=== PATIENT | male | born 1980 | race Two or more races ===

== ENCOUNTER 2021-09-08 06:11 | Inpatient (IN) | payer MEDICAID, OTHER ==
[~2021-09-08] VITALS: Ht 175.3 cm; Wt 154.3 kg
[2021-09-08 07:39] LABS: Hematocrit 44.6 % (41.0-53.0); Hemoglobin 14.9 g/dL (13.5-17.5); Mean Corpuscular Hemoglobin 30.1 pg (28.0-32.0); Mean Corpuscular Hgb Conc. 33.4 g/dL (32.0-36.0); Mean Corpuscular Volume 90.3 fL (80.0-100.0); Red Blood Cells 4.93 10^6/uL (4.5-5.90); White Blood Cell 29.2 10^3/uL (4.4-10.8)
[2021-09-08 07:54] LABS: Albumin 2.5 g/dL (3.4-5.0); BUN/Creatinine Ratio 14.1; Calcium 9.1 mg/dL (8.5-10.1); Potassium 3.4 mmol/L (3.5-5.1)
[2021-09-08 07:57] LABS: Basophils % (manual) 0 (0.0-2.0); Blast Cells 0; Eosinophils % (manual) 0 (0-7); Metamyelocytes % 0; Promyelocytes % 0; Reactive Lymphocytes 0
[2021-09-08 08:04] LABS: Bilirubin, Total 1.8 mg/dL (0.2-1.0); Total Protein 8.1 g/dL (6.4-8.2)
[2021-09-08 08:23] LABS: Urine Bacteria NONE SEEN /hpf (None Seen); Urine Blood 1+ /uL (Negative); Urine Hyaline Cast FEW /lpf (0 - 2); Urine Mucus FEW (None Seen); Urine Specific Gravity 1.022 (1.001-1.035); Urine WBC 93 /hpf (0 - 3); Urine WBC Clumps PRESENT /hpf (None Seen)
[2021-09-08] MEDS ORDERED: ONDANSETRON HCL 4 MG/2 ML VIAL IV ONE (08:30)
[2021-09-08] MEDS ORDERED: PIPERACILLIN-TAZOB 3.375GM 100 ML IV ONE (08:30)
[2021-09-08] MEDS ORDERED: HYDROmorphone HCL 2 MG/ML VL IV ONE (08:30)
[2021-09-08] MEDS ORDERED: SODIUM CHLORIDE 0.9% 1,000 ML IV ONE (08:30)
[2021-09-08 10:01] LABS: INR 1.48 (0.9-1.15); Partial Thromboplastin Time 28.5 sec (23.6-33.0)
[2021-09-08] MEDS ORDERED: NITROGLYCERIN 0.4 MG SL TAB SL PRN (10:30)
[2021-09-08] MEDS ORDERED: MORPHINE SULFATE 4 MG/ML SYR/VIAL IV PRN (10:30)
[2021-09-08] MEDS ORDERED: SODIUM CHLORIDE 0.9% 1,000 ML IV SCH (10:30)
[2021-09-08 10:43] LABS: Band Neutrophils % (manual) 20; Lymphocytes % (manual) 6 (10.0-50.0); Monocytes % (manual) 7 (0-12); Myelocytes % 1
[2021-09-08] MEDS ORDERED: LIDOCAINE 1%-Mpf/Epinephrine 1:200,000 ONE (12:27)
[2021-09-08] MEDS ORDERED: SUCCINYLCHOLINE CHLORIDE 20 MG/ML 10ML VIAL IV ONE ×2 (13:13→13:14)
[2021-09-08] MEDS ORDERED: ROCURONIUM 10MG/ML 10ML VIAL IV ONE (13:21)
[2021-09-08] MEDS ORDERED: fentaNYL CITRATE 5 ML ONE (13:21)
[2021-09-08] MEDS ORDERED: MIDAZOLAM HCL 2MG/2ML 2ml VIAL (1mg/ml) ONE (13:21)
[2021-09-08 14:15] LABS: Protein, Urine 115.4 mg/dL (0.0-11.9)
[2021-09-08] MEDS ORDERED: SUGAMMADEX 200mg/2ml Vial (100MG/ML) IV ONE (14:52)
[2021-09-08] MEDS ORDERED: HYDROmorphone HCL 2 MG/ML VL IV PRN (15:15)
[2021-09-08] MEDS ORDERED: ONDANSETRON HCL 4 MG/2 ML VIAL IV PRN (15:15)
[2021-09-08 16:48] VITALS: BP_SYST 110; BP_SYST 115; BP_DIAS 65; BP_DIAS 67
[2021-09-08 17:18] VITALS: BP 109/63
[2021-09-08 18:28] VITALS: BP 125/71
[2021-09-08] MEDS: ONDANSETRON HCL 4 MG/2 ML VIAL IV PRN (19:53)
[2021-09-08] MEDS: MORPHINE SULFATE INJECTION 2 MG/ML SYRG IV PRN (19:56)
[2021-09-08] MEDS: D5W/SOD CHL 0.45%/KCL 20MEQ 1,000 ML IV SCH ×2 (19:59→23:50)
[2021-09-08 20:00] VITALS: BP 127/74
[2021-09-08] MEDS: HEPARIN SODIUM (PORCINE) 5000 UNITS/ML 1ML VIAL SC SCH (21:06)
[2021-09-08] MEDS ORDERED: IBUP800T27 PO (21:31)
[2021-09-08] MEDS ORDERED: AML5T PO (21:32)
[2021-09-08] MEDS ORDERED: TRAM-297 PO (21:33)
[2021-09-08] MEDS ORDERED: TAM04C PO (21:33)
[2021-09-08] MEDS: metroNIDAZOLE 500MG/100ML 100 ML IV SCH (21:44)
[2021-09-08 22:00] VITALS: BP 127/74
[2021-09-09] MEDS: ONDANSETRON HCL 4 MG/2 ML VIAL IV PRN (03:50)
[2021-09-09] MEDS: MORPHINE SULFATE INJECTION 2 MG/ML SYRG IV PRN ×3 (03:52→20:34)
[2021-09-09] MEDS: D5W/SOD CHL 0.45%/KCL 20MEQ 1,000 ML IV SCH ×2 (04:16→16:58)
[2021-09-09 05:00] VITALS: BP 127/78
[2021-09-09] MEDS: metroNIDAZOLE 500MG/100ML 100 ML IV SCH ×3 (05:31→22:00)
[2021-09-09 05:40] LABS: Basophils # (auto) 0 10 ^3/uL (0-0.2); Eosinophils # (auto) 0 10 ^3/uL (0-0.8); Hemoglobin 12.9 g/dL (13.5-17.5); Lymphocytes # (auto) 0.8 10 ^3/uL (0.4-5.4); Lymphocytes % (auto) 3.7 % (10.0-50.0); Mean Corpuscular Hemoglobin 30.7 pg (28.0-32.0); Mean Corpuscular Volume 90.3 fL (80.0-100.0); Monocytes # (auto) 1.1 10 ^3/uL (0-1.3); Monocytes % (auto) 5.2 % (0.0-12.0); Neutrophils # (auto) 19.8 10 ^3/uL (1.6-8.6); Neutrophils % (auto) 91.1 % (37.0-80.0); Red Blood Cells 4.21 10^6/uL (4.5-5.90); Red Cell Distribution Width 14.3 % (11.8-14.3); White Blood Cell 21.8 10^3/uL (4.4-10.8)
[2021-09-09 06:01] LABS: Calcium 8.2 mg/dL (8.5-10.1); Potassium 3.6 mmol/L (3.5-5.1)
[2021-09-09 06:08] LABS: Albumin 2.1 g/dL (3.4-5.0); BUN/Creatinine Ratio 31.6; Total Protein 7.3 g/dL (6.4-8.2)
[2021-09-09 08:00] VITALS: BP 119/85
[2021-09-09 09:00] VITALS: BP 119/85
[2021-09-09] MEDS: cefTRIAXone 1GM/50ML D5W 50 ML IV SCH (10:38)
[2021-09-09] MEDS: PANTOPRAZOLE 40 MG/10 ML VIAL INJ IV SCH (10:38)
[2021-09-09] MEDS: HEPARIN SODIUM (PORCINE) 5000 UNITS/ML 1ML VIAL SC SCH ×2 (10:50→22:00)
[2021-09-09 13:00] VITALS: BP 129/83
[2021-09-09 17:00] VITALS: BP 130/92
[2021-09-09 22:00] VITALS: BP 136/84
[2021-09-10] MEDS: D5W/SOD CHL 0.45%/KCL 20MEQ 1,000 ML IV SCH (01:06)
[2021-09-10 05:00] VITALS: BP 150/94
[2021-09-10 05:16] LABS: Hematocrit 39.6 % (41.0-53.0); Hemoglobin 13.1 g/dL (13.5-17.5); Mean Corpuscular Hemoglobin 29.9 pg (28.0-32.0); Mean Corpuscular Hgb Conc. 33.2 g/dL (32.0-36.0); Red Blood Cells 4.39 10^6/uL (4.5-5.90); Red Cell Distribution Width 14.4 % (11.8-14.3); White Blood Cell 21.5 10^3/uL (4.4-10.8)
[2021-09-10 05:20] LABS: Basophils % (manual) 0 (0.0-2.0); Blast Cells 0; Eosinophils % (manual) 0 (0-7); Metamyelocytes % 0; Myelocytes % 0; Promyelocytes % 0; Reactive Lymphocytes 0
[2021-09-10] MEDS: metroNIDAZOLE 500MG/100ML 100 ML IV SCH ×3 (05:36→21:08)
[2021-09-10 05:53] LABS: Calcium 8.6 mg/dL (8.5-10.1); Potassium 3.9 mmol/L (3.5-5.1)
[2021-09-10 05:55] LABS: BUN/Creatinine Ratio 38.2
[2021-09-10 06:37] LABS: Band Neutrophils % (manual) 9; Lymphocytes % (manual) 1 (10.0-50.0); Monocytes % (manual) 2 (0-12)
[2021-09-10 09:00] VITALS: BP 141/93
[2021-09-10] MEDS: cefTRIAXone 1GM/50ML D5W 50 ML IV SCH (09:36)
[2021-09-10] MEDS: PANTOPRAZOLE 40 MG/10 ML VIAL INJ IV SCH (09:36)
[2021-09-10] MEDS: HEPARIN SODIUM (PORCINE) 5000 UNITS/ML 1ML VIAL SC SCH ×2 (09:47→21:08)
[2021-09-10] MEDS: SODIUM CHLORIDE 0.9% 1,000 ML IV SCH (12:24)
[2021-09-10 12:30] VITALS: BP 129/87
[2021-09-10] MEDS: MORPHINE SULFATE INJECTION 2 MG/ML SYRG IV PRN (18:34)
[2021-09-10 22:54] VITALS: BP 146/101
[2021-09-11 05:00] VITALS: BP 139/86
[2021-09-11] MEDS: metroNIDAZOLE 500MG/100ML 100 ML IV SCH ×3 (05:36→22:50)
[2021-09-11] MEDS: MORPHINE SULFATE INJECTION 2 MG/ML SYRG IV PRN ×2 (05:48→23:01)
[2021-09-11 09:00] VITALS: BP 147/95
[2021-09-11] MEDS: cefTRIAXone 1GM/50ML D5W 50 ML IV SCH (09:39)
[2021-09-11] MEDS: PANTOPRAZOLE 40 MG/10 ML VIAL INJ IV SCH (09:39)
[2021-09-11] MEDS: HEPARIN SODIUM (PORCINE) 5000 UNITS/ML 1ML VIAL SC SCH ×2 (09:40→22:50)
[2021-09-11] MEDS: SODIUM CHLORIDE 0.9% 1,000 ML IV SCH ×2 (13:27→20:50)
[2021-09-11 13:30] VITALS: BP 134/84
[2021-09-11] MEDS: levoFLOXacin 500MG 100 ML IV SCH (16:41)
[2021-09-11 17:00] VITALS: BP 134/84
[2021-09-11 22:00] VITALS: BP 129/85
[2021-09-12] VITALS (7 sets, daily range): BP systolic 121–145; BP diastolic 61–92
[2021-09-12] MEDS: MORPHINE SULFATE INJECTION 2 MG/ML SYRG IV PRN ×5 (04:00→21:45)
[2021-09-12] MEDS: metroNIDAZOLE 500MG/100ML 100 ML IV SCH ×3 (05:48→15:10)
[2021-09-12 07:20] LABS: Basophils # (auto) 0.1 10 ^3/uL (0-0.2); Basophils % (auto) 0.3 % (0.0-2.0); Eosinophils # (auto) 0.1 10 ^3/uL (0-0.8); Eosinophils % (auto) 0.4 % (0.0-7.0); Hematocrit 42.7 % (41.0-53.0); Hemoglobin 14.4 g/dL (13.5-17.5); Lymphocytes % (auto) 11.4 % (10.0-50.0); Mean Corpuscular Hemoglobin 30.1 pg (28.0-32.0); Mean Corpuscular Hgb Conc. 33.8 g/dL (32.0-36.0); Monocytes # (auto) 2.4 10 ^3/uL (0-1.3); Neutrophils # (auto) 20.7 10 ^3/uL (1.6-8.6); Neutrophils % (auto) 78.9 % (37.0-80.0); Red Blood Cells 4.79 10^6/uL (4.5-5.90); Red Cell Distribution Width 14.4 % (11.8-14.3); White Blood Cell 26.2 10^3/uL (4.4-10.8)
[2021-09-12] MEDS: PANTOPRAZOLE 40 MG/10 ML VIAL INJ IV SCH (09:39)
[2021-09-12] MEDS: HEPARIN SODIUM (PORCINE) 5000 UNITS/ML 1ML VIAL SC SCH ×2 (09:45→22:28)
[2021-09-12] MEDS: levoFLOXacin 500MG 100 ML IV SCH (11:44)
[2021-09-12 14:04] LABS: Hepatitis C Antibody Negative (Negative)
[2021-09-13 05:00] VITALS: BP 122/74
[2021-09-13] MEDS: MORPHINE SULFATE INJECTION 2 MG/ML SYRG IV PRN ×3 (06:01→21:35)
[2021-09-13] MEDS: SODIUM CHLORIDE 0.9% 1,000 ML IV SCH ×2 (06:02→22:29)
[2021-09-13] MEDS ORDERED: metroNIDAZOLE 500MG/100ML 100 ML IV SCH (08:00)
[2021-09-13 09:08] VITALS: BP 126/78
[2021-09-13] MEDS: levoFLOXacin 500MG 100 ML IV SCH (09:29)
[2021-09-13] MEDS: PANTOPRAZOLE 40 MG/10 ML VIAL INJ IV SCH (09:31)
[2021-09-13] MEDS: HEPARIN SODIUM (PORCINE) 5000 UNITS/ML 1ML VIAL SC SCH ×2 (09:34→21:39)
[2021-09-13 11:13] LABS: Hematocrit 39.4 % (41.0-53.0); Hemoglobin 13.3 g/dL (13.5-17.5); Mean Corpuscular Hemoglobin 30.1 pg (28.0-32.0); Mean Corpuscular Hgb Conc. 33.7 g/dL (32.0-36.0); Mean Corpuscular Volume 89.4 fL (80.0-100.0); Red Blood Cells 4.41 10^6/uL (4.5-5.90); Red Cell Distribution Width 13.9 % (11.8-14.3); White Blood Cell 24.3 10^3/uL (4.4-10.8)
[2021-09-13 11:20] LABS: Eosinophils % (manual) 0 (0-7)
[2021-09-13 11:21] LABS: Basophils % (manual) 0 (0.0-2.0); Blast Cells 0; Metamyelocytes % 0; Promyelocytes % 0; Reactive Lymphocytes 0
[2021-09-13] MEDS ORDERED: HYDR-4902 PO (11:33)
[2021-09-13 11:44] LABS: Calcium 7.6 mg/dL (8.5-10.1); Potassium 3.7 mmol/L (3.5-5.1)
[2021-09-13 11:58] LABS: Band Neutrophils % (manual) 1; Lymphocytes % (manual) 9 (10.0-50.0); Monocytes % (manual) 5 (0-12); Myelocytes % 1
[2021-09-13 12:00] LABS: BUN/Creatinine Ratio 26.2
[2021-09-13 12:54] VITALS: BP 109/60
[2021-09-13 16:55] VITALS: BP 125/74
[2021-09-13] MEDS: ERTAPENEM SOD INJ 1 GM in SODIUM CHL 0.9% 50 ML IV SCH (16:56)
[2021-09-13 22:00] VITALS: BP 132/73
[2021-09-14 05:00] VITALS: BP 130/78
[2021-09-14 07:57] VITALS: BP 119/66
[2021-09-14] MEDS ORDERED: HEPARIN SODIUM (PORCINE) 5000 UNITS/ML 1ML VIAL ONE (08:28)
[2021-09-14] MEDS: ERTAPENEM SOD INJ 1 GM in SODIUM CHL 0.9% 50 ML IV SCH (08:48)
[2021-09-14] MEDS: PANTOPRAZOLE 40 MG/10 ML VIAL INJ IV SCH (08:52)
[2021-09-14] MEDS: HEPARIN SODIUM (PORCINE) 5000 UNITS/ML 1ML VIAL SC SCH (08:54)
[2021-09-14 09:00] VITALS: BP 119/66
== END 2021-09-14 11:00 | disposition home health service (06) | DRG 710 ==
LOC: ER 06:11 → TELE 10:22 → TELE-CENTR 16:57
PROVIDERS: ADMIT Internal Medicine; ATTEND Internal Medicine
PROC: 0WJG4ZZ Inspection of Peritoneal Cavity, Percutaneous Endoscopic Approach (ICD-10-PCS; 2021-09-08)
PROC: 0DNW0ZZ Release Peritoneum, Open Approach (ICD-10-PCS; 2021-09-08)
PROC: 0DTJ0ZZ Resection of Appendix, Open Approach (ICD-10-PCS; principal; 2021-09-08 13:40)
PROC: 05HC33Z Insertion of Infusion Device into Left Basilic Vein, Percutaneous Approach (ICD-10-PCS; 2021-09-12)
PROC: B54NZZA Ultrasonography of Left Upper Extremity Veins, Guidance (ICD-10-PCS; 2021-09-12)
DX: A41.9 Sepsis, unspecified organism (principal); N17.0 Acute kidney failure with tubular necrosis; K35.33 Acute appendicitis with perforation, localized peritonitis, and gangrene, with abscess; I96 Gangrene, not elsewhere classified; R18.8 Other ascites; E88.09 Other disorders of plasma-protein metabolism, not elsewhere classified; E87.1 Hypo-osmolality and hyponatremia; E66.01 Morbid (severe) obesity due to excess calories; N39.0 Urinary tract infection, site not specified; K66.0 Peritoneal adhesions (postprocedural) (postinfection); N20.0 Calculus of kidney; Z20.822 Contact with and (suspected) exposure to COVID-19; I10 Essential (primary) hypertension; Z53.31 Laparoscopic surgical procedure converted to open procedure; Z68.43 Body mass index [BMI] 50.0-59.9, adult; Z87.442 Personal history of urinary calculi
CPT/HCPCS: 36415; 71045; 74176; 76775; 80048; 80053; 81001; 82306; 82570; 83690; 83970; 84100; 84156; 84300; 85007; 85025; 85027; 85610; 85730; 86803; 86850; 86900; 86901; 87070; 87075; 87077; 87186; 87205; 87340; 87426; 93005; 96361; 96365; 96375; C9113; G0378; J0330; J0696; J1335; J1956; J2250; J2405; J2543; J3490

== ENCOUNTER 2021-09-15 15:55 | Emergency (ER) | payer MEDICAID ==
[~2021-09-15] VITALS: Ht 175.3 cm; Wt 145.1 kg
[~2021-09-15 15:55] MED LIST: AML5T PO; HYDR-4902 PO; TAM04C PO
[2021-09-15 16:06] VITALS: BP 126/84
== END 2021-09-15 16:31 | disposition home or self-care (01) ==
LOC: ER 16:00
DX: T82.898A Other specified complication of vascular prosthetic devices, implants and grafts, initial encounter (principal); Z87.442 Personal history of urinary calculi

== ENCOUNTER 2021-11-04 11:09 | Emergency (ER) | payer MEDICAID ==
[~2021-11-04] VITALS: Ht 175.3 cm; Wt 141.5 kg
[2021-11-04 12:12] VITALS: BP 148/91
== END 2021-11-04 12:19 | disposition home or self-care (01) ==
LOC: ER 11:09
DX: I10 Essential (primary) hypertension (principal); Z48.00 Encounter for change or removal of nonsurgical wound dressing; Z87.442 Personal history of urinary calculi

== ENCOUNTER → 2021-11-23 | Emergency (ER) | payer MEDICAID, OTHER ==
[~2021-11-23] VITALS: Ht 175.3 cm; Wt 135.6 kg
[~2021-11-23] MED LIST changes: +IBU600T PO; +KETOROLAC TROMETH 60MG/2ML VIAL IM ONE; +cloNIDine HCL 0.1 MG TAB PO ONE
[2021-11-23 15:44] VITALS: BP 158/100
== END | disposition home or self-care (01) ==
LOC: ER 14:25
DX: I10 Essential (primary) hypertension (principal); M79.10 Myalgia, unspecified site; Z90.49 Acquired absence of other specified parts of digestive tract; Z79.899 Other long term (current) drug therapy
CPT/HCPCS: 72125; 72128; 72131; 96372; 99284; J1885